=== PATIENT | female | born 1950 | race Caucasian/White ===

== ENCOUNTER → 2017-02-14 | Outpatient (CLI) | payer MEDICARE, OTHER ==
[~2017-02-14] MED LIST: CO Q-10100 MG PO; CRESTOR20 MG PO; DEXILANT60 MG PO; HUMIRA40 MG/0.8 SQ; PROZAC40 MG PO; STOOL SOFTENER100 M1 PO; VESICARE10 MG PO; VYTORIN 10/41 TABLET PO; WELLBUTRIN XL300 MG PO
== END | disposition home or self-care (01) ==
LOC: CDC 08:34
DX: R94.31 Abnormal electrocardiogram [ECG] [EKG] (principal); K43.2 Incisional hernia without obstruction or gangrene
CPT/HCPCS: 93000

== ENCOUNTER 2017-03-22 07:27 | Day surgery (SDC) | payer OTHER ==
[~2017-03-22] VITALS: Ht 160 cm; Wt 68.9 kg
[~2017-03-22 07:27] MED LIST changes: +CO Q-10400 MG PO; +EYE DROPS15 M1 BOTH EYES; +OMEGA-3 KRILL1 EACH PO; +PRAVACHOL40 MG PO; +PROZAC20 MG PO; +SANCTURA XR60 MG PO
[2017-03-22 08:06] VITALS: BP 148/71
[2017-03-22] MEDS ORDERED: PERCOCET 5/31 TABLET PO (12:30)
[2017-03-22 13:15] VITALS: BP 132/77
[2017-03-22 14:24] VITALS: BP 130/65
[2017-03-22 16:36] VITALS: BP 149/85
== END 2017-03-22 17:08 | disposition home or self-care (01) ==
LOC: SDC 07:27
DX: K43.2 Incisional hernia without obstruction or gangrene (principal); K40.20 Bilateral inguinal hernia, without obstruction or gangrene, not specified as recurrent; I10 Essential (primary) hypertension; G47.33 Obstructive sleep apnea (adult) (pediatric); R73.03 Prediabetes; L40.50 Arthropathic psoriasis, unspecified
CPT/HCPCS: C1781; J0131; J1100; J1170; J1580; J1885; J2250; J2405; J2710; J3010; J7050; Q0175